=== PATIENT | female | born 1990 | race Caucasian/White ===

== ENCOUNTER 2016-07-13 19:34 | Emergency (ER) | payer OTHER ==
[2016-07-13 19:52] VITALS: RESP 16
[2016-07-13] MEDS ORDERED: NS 1,000 ML IV ONE (20:31)
[2016-07-13] MEDS ORDERED: ONDANSETRON 4 MG/2 ML VIAL IVP ONE (20:31)
--- NOTE | 2016-07-13 20:31 | EDPHY ---
H & P Time Seen by Provider: 07/13/16 20:30 HPI/ROS: Chief complaint. Vomiting for 1 month HPI. 26-year-old female presents with vomiting daily for 1 month. Seen at [facility] and diagnosed with gastritis. Treated with Prilosec and Pepto- Bismol which helps but does not resolve the symptoms completely. She has epigastric pain she describes as burning. No radiation. She does have a history of gastritis and peptic ulcer disease. Occasionally she has knee swelling and has had it twice this past month for no trauma. She feels sometimes that her hair is falling out. She does not have any swelling now. She is occasionally dizzy with climbing stairs and did pass out once a week or so ago. Otherwise no cough, fever, chest pain, shortness of breath, chills. ROS Constitutional. no fever/chills, no weakness Eyes. no problems with vision ENT. no sore throat, no nasal drainage Cardiovascular. no chest pain Respiratory. no shortness of breath, no cough Abdominal. Abdominal pain and vomiting . no problems urinating MS. no calf pain/swelling, no neck/back pain, no joint pain Skin. no rash Lymph. no swollen glands Neuro. no headache, no dizziness, no difficulty walking or with speech Past Medical/Surgical History: Peptic ulcer disease/gastritis Social History: Single, nonsmoker, no alcohol Smoking Status: Never smoked Physical Exam: General Appearance: Alert well-developed female mild distress vital signs are stable Eyes: Pupils equal and round no pallor or injection. ENT, Mouth: Mucous membranes are moist. Respiratory: There are no retractions, lungs are clear to auscultation. Cardiovascular: Regular rate and rhythm. Gastrointestinal: Abdomen is soft with mild tenderness in the epigastrium. Normal bowel sounds. No masses. Neurological: Awake and alert, sensory and motor exams grossly normal. Skin: Warm and dry, no rashes. Musculoskeletal: Neck is supple nontender. Extremities symmetrical, full range of motion. Psychiatric: Patient is oriented X 3, there is no agitation. Constitutional: Initial Vital Signs Temperature (C) 37.1 C 07/13/16 19:47 Heart Rate 67 07/13/16 19:47 Respiratory Rate 16 07/13/16 19:47 Blood Pressure 101/63 07/13/16 19:47 O2 Sat (%) 99 07/13/16 19:47 O2 Delivery Mode Room Air Allergies/Adverse Reactions: No Known Allergies Allergy (Unverified 07/13/16 19:52) Home Medications: Medication Instructions Recorded Esomeprazole Mag Trihydrate 40 mg PO DAILY #20 07/13/16 [Nexium] Ondansetron Odt [Zofran Odt] 4 mg PO Q4PRN PRN #10 tab 07/13/16 Pepto-Bismol 07/13/16 Prilosec Otc 07/13/16 Medical Decision Making Procedures: Patient given Nexium and Zofran in the emergency department ED Course/Re-evaluation: Patient remained stable on re-evaluation. She and I discussed laboratory evaluation, treatment plan including criteria for return importance of follow- up and further evaluation. She expresses understanding and agrees Differential Diagnosis: This would appear to be gastritis. Possibly it is peptic ulcer disease. There is no bleeding. I considered , pancreatitis, liver disease, electrolyte abnormality, dehydration - Data Points Laboratory Results: Laboratory Results 07/13/16 20:45 07/13/16 20:45 07/13/16 07/13/16 07/13/16 20:45 20:45 20:45 WBC RBC Hgb Hct MCV MCH MCHC RDW Plt Count MPV Neut % (Auto) Lymph % (Auto) [place] % (Auto) Eos % (Auto) Baso % (Auto) Nucleat RBC Rel Count Absolute Neuts (auto) Absolute Lymphs (auto) Absolute Monos (auto) Absolute Eos (auto) Absolute Basos (auto) Absolute Nucleated RBC Immature Gran % Immature Gran # Sodium 139 mEq/L mEq/L (134-144) Potassium 4.0 mEq/L mEq/L (3.5-5.2) Chloride 107 mEq/L mEq/L (97-110) Carbon Dioxide 22 mEq/l mEq/l (22-31) Anion Gap 10 mEq/L mEq/L (8-16) BUN 7 mg/dL mg/dL (7-23) Creatinine 0.6 mg/dL mg/dL (0.6-1.0) Estimated GFR > 60 Glucose 85 mg/dL mg/dL (70-100) Calcium 8.9 mg/dL mg/dL (8.5-10.4) Total Bilirubin 0.5 mg/dL mg/dL (0.1-1.4) Conjugated Bilirubin 0.4 mg/dL mg/dL (0.0-0.5) Unconjugated Bilirubin 0.1 mg/dL mg/dL (0.0-1.1) AST 20 IU/L IU/L (14-46) ALT 17 IU/L IU/L (9-52) Alkaline Phosphatase 51 IU/L IU/L (38-126) Total Protein 6.9 g/dL g/dL (6.3-8.2) Albumin 3.9 g/dL g/dL (3.5-5.0) Lipase 104.0 IU/L IU/L (23-300) Beta HCG, Qual NEGATIVE Urine Color PALE YELLOW Urine Appearance HAZY Urine pH 7.0 (5.0-7.5) Ur Specific [place] 1.008 (1.002-1.030) Urine Protein NEGATIVE (NEGATIVE) Urine Ketones TRACE H (NEGATIVE) Urine Blood NEGATIVE (NEGATIVE) Urine Nitrate NEGATIVE (NEGATIVE) Urine Bilirubin NEGATIVE (NEGATIVE) Urine Urobilinogen NEGATIVE EU EU (0.2-1.0) Ur Leukocyte Esterase 2+ H (NEGATIVE) Urine RBC NONE SEEN /hpf /hpf (0-3) Urine WBC 5-10 /hpf H /hpf (0-3) Ur Epithelial Cells TRACE /lpf /lpf (NONE-1+) Urine Bacteria TRACE /hpf H /hpf (NONE SEEN) Urine Glucose NEGATIVE (NEGATIVE) 07/13/16 20:45 WBC 6.82 10^3/uL 10^3/uL (3.80-9.50) RBC 4.21 10^6/uL 10^6/uL (4.18-5.33) Hgb 11.3 g/dL L g/dL (12.6-16.3) Hct 35.2 % L % (38.0-47.0) MCV 83.6 fL fL (81.5-99.8) MCH 26.8 pg L pg (27.9-34.1) MCHC 32.1 g/dL L g/dL (32.4-36.7) RDW 15.6 % H % (11.5-15.2) Plt Count 243 10^3/uL 10^3/uL (150-400) MPV 10.4 fL fL (8.7-11.7) Neut % (Auto) 43.2 % % (39.3-74.2) Lymph % (Auto) 43.0 % % (15.0-45.0) [place] % (Auto) 6.6 % % (4.5-13.0) Eos % (Auto) 6.5 % % (0.6-7.6) Baso % (Auto) 0.6 % % (0.3-1.7) Nucleat RBC Rel Count 0.0 % % (0.0-0.2) Absolute Neuts (auto) 2.95 10^3/uL 10^3/uL (1.70-6.50) Absolute Lymphs (auto) 2.93 10^3/uL 10^3/uL (1.00-3.00) Absolute Monos (auto) 0.45 10^3/uL 10^3/uL (0.30-0.80) Absolute Eos (auto) 0.44 10^3/uL H 10^3/uL (0.03-0.40) Absolute Basos (auto) 0.04 10^3/uL 10^3/uL (0.02-0.10) Absolute Nucleated RBC 0.00 10^3/uL 10^3/uL (0-0.01) Immature Gran % 0.1 % % (0.0-1.1) Immature Gran # 0.01 10^3/uL 10^3/uL (0.00-0.10) Sodium Potassium Chloride Carbon Dioxide Anion Gap BUN Creatinine Estimated GFR Glucose Calcium Total Bilirubin Conjugated Bilirubin Unconjugated Bilirubin AST ALT Alkaline Phosphatase Total Protein Albumin Lipase Beta HCG, Qual Urine Color Urine Appearance Urine pH Ur Specific [place] Urine Protein Urine Ketones Urine Blood Urine Nitrate Urine Bilirubin Urine Urobilinogen Ur Leukocyte Esterase Urine RBC Urine WBC Ur Epithelial Cells Urine Bacteria Urine Glucose Medications Given: Discontinued Medications Cephalexin HCl (Keflex) 500 mg PO EDNOW ONE PRN Reason: Protocol Stop: 07/13/16 22:04 Last Admin: 07/13/16 22:00 Dose: 500 mg Sodium Chloride (Ns) 1,000 mls @ 0 mls/hr IV ONCE ONE PRN Reason: Wide Open Stop: 07/13/16 20:32 Last Admin: 07/13/16 20:44 Dose: 1,000 mls Ondansetron HCl (Zofran) 4 mg IVP EDNOW ONE Stop: 07/13/16 20:32 Last Admin: 07/13/16 21:47 Dose: Not Given Ondansetron HCl (Zofran Odt 4 Mg Prepack#2) 1 btl TAKEHOME EDNOW ONE Stop: 07/13/16 21:40 Last Admin: 07/13/16 21:47 Dose: 1 btl Pantoprazole Sodium (Protonix) 40 mg PO EDNOW ONE Stop: 07/13/16 21:40 Last Admin: 07/13/16 21:53 Dose: 40 mg Departure - Departure Disposition: Home, Routine, Self-Care Clinical Impression: Gastritis Qualifiers: Gastritis type: unspecified gastritis Chronicity: chronic Gastritis bleeding: without bleeding Qualified Code(s): K29.50 - Unspecified chronic gastritis without bleeding Condition: Good Instructions: Ondansetron (By mouth), Gastritis (ED) Additional Instructions: Substitute Nexium for Prilosec for better healing of your stomach. Zofran as needed for nausea/ vomiting. Frequent, small sips fluids well nauseated. Gradual diet advancement. I will give you the name of senior software analyst and encourage you to call and make an appointment for follow-up and further evaluation. Return sooner for worsening symptoms Referrals: NONE *PRIMARY CARE P,. [Primary Care Provider] - As per Instructions Darshana Emmanuel MD [Medical Doctor] - As per Instructions Prescriptions: Esomeprazole Mag Trihydrate [Nexium] 40 mg PO DAILY #20 cap Ondansetron Odt [Zofran Odt] 4 mg PO Q4PRN PRN #10 tab PRN Reason: Nausea/Vomiting, Use 1st
[2016-07-13 20:50] LABS: % IMMATURE GRANULYOCYTES 0.1 % (0.0-1.1); ABSOLUTE IMMATURE GRANULOCYTES 0.01 10^3/uL (0.00-0.10); ADD DIFF? NO; ADD MORPH? NO; ADD SCAN? NO; ATYPICAL LYMPHOCYTE FLAG 30 (0-99); FRAGMENT RBC FLAG 0 (0-99); HEMATOCRIT 35.2 % (38.0-47.0); HEMOGLOBIN 11.3 g/dL (12.6-16.3); LEFT SHIFT FLG 0 (0-99); LIPEMIA HEMOLYSIS FLAG 80 (0-99); MEAN CELL HEMOGLOBIN 26.8 pg (27.9-34.1); MEAN CELL HEMOGLOBIN CONCENTR. 32.1 g/dL (32.4-36.7); MEAN CELL VOLUME 83.6 fL (81.5-99.8); MEAN PLATELET VOLUME 10.4 fL (8.7-11.7); PLATELET CLUMPS FLAG 0 (0-99); PLATELET COUNT 243 10^3/uL (150-400); RED BLOOD CELL COUNT 4.21 10^6/uL (4.18-5.33); RED CELL DISTRIBUTION WIDTH 15.6 % (11.5-15.2)
[2016-07-13 20:56] LABS: COLOR PALE YELLOW; LEUKOCYTE ESTERASE,URINE 2+ (NEGATIVE); NITRITE,URINE NEGATIVE (NEGATIVE)
[2016-07-13 21:05] LABS: ALANINE AMINOTRANSFERASE 17 IU/L (9-52); ALBUMIN 3.9 g/dL (3.5-5.0); ALKALINE PHOSPHATASE 51 IU/L (38-126); ANION GAP 10 mEq/L (8-16); ASPARTATE AMINOTRANSFERASE 20 IU/L (14-46); BILIRUBIN,TOTAL 0.5 mg/dL (0.1-1.4); BILIRUBIN-CONJUGATED 0.4 mg/dL (0.0-0.5); BILIRUBIN-UNCONJUGATED 0.1 mg/dL (0.0-1.1); CALCIUM 8.9 mg/dL (8.5-10.4); CARBON DIOXIDE 22 mEq/l (22-31); CHLORIDE 107 mEq/L (97-110); CREATININE 0.6 mg/dL (0.6-1.0); GLOMERULAR FILTRATION RATE > 60; GLUCOSE 85 mg/dL (70-100); SODIUM 139 mEq/L (134-144); TOTAL PROTEIN 6.9 g/dL (6.3-8.2)
[2016-07-13 21:09] LABS: BACTERIA TRACE /hpf (NONE SEEN)
[2016-07-13 21:10] LABS: RBC,URINE NONE SEEN /hpf (0-3)
[2016-07-13] MEDS ORDERED: ONDANSETRON 4MG PREPACK#2 BTL TAKEHOME ONE (21:39)
[2016-07-13] MEDS ORDERED: PANTOPRAZOLE SODIUM 40 MG TAB PO ONE (21:39)
[2016-07-13 21:54] VITALS: BP 132/64; PULSE 72; TEMP 98.1; O2SAT 97
[2016-07-13] MEDS ORDERED: CEPHALEXIN 500 MG CAP PO ONE ×2 (21:59→22:03)
== END 2016-07-13 22:10 | disposition home or self-care (01) ==
DX: K29.50 Unspecified chronic gastritis without bleeding (principal)

== ENCOUNTER 2016-10-08 13:54 | Emergency (ER) | payer OTHER ==
[2016-10-08 14:00] VITALS: TEMP 97.9
[2016-10-08] MEDS ORDERED: HYDROmorphONE/DILAUDID 1 MG/ML SYR IVP ONE (14:55)
[2016-10-08] MEDS ORDERED: ONDANSETRON 4 MG/2 ML VIAL IVP ONE (14:55)
[2016-10-08] MEDS ORDERED: NS 1,000 ML IV ONE (14:55)
[2016-10-08] MEDS ORDERED: MAG HYDROX/AL HYDROX/SIMETH 30 ML UDCUP PO ONE (14:58)
[2016-10-08] MEDS ORDERED: HYOSCYAMINE SULFATE 0.125 MG TAB PO ONE (14:58)
[2016-10-08] MEDS ORDERED: LIDOCAINE 2% VISCOUS 15 ML UDCUP PO ONE (14:58)
--- NOTE | 2016-10-08 15:02 | EDPHY ---
H & P Stated Complaint: Abdo pain, N/V/D for 2 days, getting worse. Time Seen by Provider: 10/08/16 14:47 HPI/ROS: CHIEF COMPLAINT: Abdominal pain vomiting HISTORY OF PRESENT ILLNESS: This is a 26-year-old female comes to the emergency department complaining of abdominal epigastric pain, nausea and vomiting today. No diarrhea she states that she has had this off and on for the last several months. She was seen here and diagnosed with gastritis. She has been to her primary at [facility] she has peptic ulcer disease. she also has been treating herself for celiac disease with moderate improvement. She states however that she has been compliant with her diet recently but over the last 2 days her symptoms have worsened again. She has been referred to manager civil but could not get her insurance to cooperate. She is currently menstruating. She denies back or urinary symptoms. She states that she cannot keep down food or fluids today. REVIEW OF SYSTEMS: Constitutional: denies: chills, fever, recent illness, recent injury EENTM: denies: blurred vision, double vision, nose congestion Respiratory: denies: cough, shortness of breath Cardiac: denies: chest pain, irregular heart rate, lightheadedness, palpitations Gastrointestinal/Abdominal: See HPI Genitourinary: denies: dysuria, frequency, hematuria, pain Musculoskeletal: denies: joint pain, muscle pain Skin: denies: lesions, rash, jaundice, bruising Neurological: denies: headache, numbness, paresthesia, tingling, dizziness, weakness Hematologic/Lymphatic: denies: blood clots, easy bleeding, easy bruising Immunologic/allergic: denies: HIV/AIDS, transplant EXAM: GENERAL: Well-appearing, obese and in no acute distress. HEAD: Atraumatic, normocephalic. EYES: Pupils equal round and reactive to light, extraocular movements intact, sclera anicteric, conjunctiva are normal. ENT: TMs normal, nares patent, oropharynx clear without exudates. Moist mucous membranes. NECK: Normal range of motion, supple without lymphadenopathy or JVD. LUNGS: Breath sounds clear to auscultation bilaterally and equal. No wheezes rales or rhonchi. HEART: Regular rate and rhythm without murmurs, rubs or gallops. ABDOMEN: Overweight, diffuse pain, primarily epigastric. No focal tenderness. BACK: No CVA tenderness, no spinal tenderness, step-offs or deformities EXTREMITIES: Normal range of motion, no pitting or edema. No clubbing or cyanosis. NEUROLOGICAL: Cranial nerves II through XII grossly intact. Normal speech, normal gait. 5/5 strength, normal movement in all extremities, normal sensation PSYCH: Normal mood, normal affect. SKIN: Warm, dry, normal turgor, no visible rashes or lesions. Source: Patient Exam Limitations: No limitations - Personal History LMP (Females 10-55): Now Current Tetanus Diphtheria and Acellular Pertussis (TDAP): Yes - Medical/Surgical History Hx Asthma: No Hx Chronic Respiratory Disease: No Hx Diabetes: No Hx Cardiac Disease: No Hx Renal Disease: No Hx Cirrhosis: No Hx Alcoholism: No Hx HIV/AIDS: No Hx Splenectomy or Spleen Trauma: No Other PMH: ongoing gi issues, tonsillectomy - Family History Significant Family History: No pertinent family hx - Social History Smoking Status: Never smoked Alcohol Use: Sober Drug Use: None Constitutional: Initial Vital Signs Temperature (C) 36.6 C 10/08/16 13:55 Heart Rate 72 10/08/16 13:55 Respiratory Rate 16 10/08/16 13:55 Blood Pressure 108/81 H 10/08/16 13:55 O2 Sat (%) 100 10/08/16 13:55 O2 Delivery Mode Room Air Allergies/Adverse Reactions: No Known Allergies Allergy (Unverified 07/13/16 19:52) Home Medications: Medication Instructions Recorded Esomeprazole Mag Trihydrate 40 mg PO DAILY #20 ramiro. 07/13/16 [Nexium] Pepto-Bismol 07/13/16 Prilosec Otc 07/13/16 Famotidine [Pepcid] 40 mg PO HS #30 tablet 10/08/16 Prozac 10 MG (*) 10/08/16 Medical Decision Making ED Course/Re-evaluation: 4:40 p.m. the patient is feeling completely better. Her abdominal exam remains benign. She states that the GI cocktail helped immensely. She is not currently taking an antacid. I will start her on Pepcid. She will follow up with her insurance recommended GI doctor. We discussed indications for returning to the emergency department. She states that she has not felt this well in her life. Differential Diagnosis: Partial list of the Differential diagnosis considered include but were not limited to; gastritis, peptic ulcer disease and although unlikely based on the history and physical exam, I also considered biliary disease, appendicitis, obstruction. I discussed these differential diagnoses and the plan with the patient as well as the usual and expected course. The patient understands that the diagnosis is provisional and that in medicine we are not always correct and that further workup is often warranted. Usual and customary warnings were given. All of the patient's questions were answered. The patient was instructed to return to the emergency department should the symptoms at all worsen or return, otherwise to followup with the physician as we discussed. - Data Points Laboratory Results: Laboratory Results 10/08/16 15:14 10/08/16 15:14 Medications Given: Discontinued Medications Al Hydroxide/Mg Hydroxide (Maalox Susp) 30 ml PO ONCE ONE Stop: 10/08/16 14:59 Last Admin: 10/08/16 15:22 Dose: 30 ml Hydromorphone HCl (Dilaudid) 0.5 mg IVP EDNOW ONE Stop: 10/08/16 14:56 Last Admin: 10/08/16 15:16 Dose: 0.5 mg Hyoscyamine Sulfate (Levsin, Hyomax-Sl) 0.25 mg PO ONCE ONE Stop: 10/08/16 14:59 Last Admin: 10/08/16 15:15 Dose: 0.25 mg Sodium Chloride (Ns) 1,000 mls @ 0 mls/hr IV EDNOW ONE; Wide Open PRN Reason: Protocol Stop: 10/08/16 14:56 Last Admin: 10/08/16 15:18 Dose: 1,000 mls Lidocaine (Lidocaine 2% Viscous) 15 ml PO ONCE ONE Stop: 10/08/16 14:59 Last Admin: 10/08/16 15:22 Dose: 15 ml Ondansetron HCl (Zofran) 4 mg IVP EDNOW ONE Stop: 10/08/16 14:56 Last Admin: 10/08/16 15:18 Dose: 4 mg Departure - Departure Disposition: Home, Routine, Self-Care Clinical Impression: Peptic ulcer disease Condition: Fair Instructions: Peptic Ulcer (ED) Referrals: NONE *PRIMARY CARE P,. [Primary Care Provider] - As per Instructions [facility],. [Clinic] - As per Instructions Darshana Emmanuel MD [Medical Doctor] - As per Instructions Prescriptions: Famotidine [Pepcid] 40 mg PO HS #30 tablet
[2016-10-08 15:29] LABS: % IMMATURE GRANULYOCYTES 0.4 % (0.0-1.1); ABSOLUTE IMMATURE GRANULOCYTES 0.04 10^3/uL (0.00-0.10); ADD DIFF? NO; ADD MORPH? NO; ADD SCAN? NO; ATYPICAL LYMPHOCYTE FLAG 0 (0-99); FRAGMENT RBC FLAG 0 (0-99); HEMATOCRIT 40.5 % (38.0-47.0); HEMOGLOBIN 13.1 g/dL (12.6-16.3); LEFT SHIFT FLG 0 (0-99); LIPEMIA HEMOLYSIS FLAG 80 (0-99); MEAN CELL HEMOGLOBIN CONCENTR. 32.3 g/dL (32.4-36.7); MEAN CELL VOLUME 83.5 fL (81.5-99.8); MEAN PLATELET VOLUME 9.4 fL (8.7-11.7); PLATELET CLUMPS FLAG 0 (0-99); PLATELET COUNT 407 10^3/uL (150-400); RED BLOOD CELL COUNT 4.85 10^6/uL (4.18-5.33); RED CELL DISTRIBUTION WIDTH 17.2 % (11.5-15.2)
[2016-10-08 15:37] LABS: ALANINE AMINOTRANSFERASE 24 IU/L (9-52); ALBUMIN 4.6 g/dL (3.5-5.0); ALKALINE PHOSPHATASE 81 IU/L (38-126); ANION GAP 12 mEq/L (8-16); ASPARTATE AMINOTRANSFERASE 22 IU/L (14-46); BILIRUBIN,TOTAL 0.4 mg/dL (0.1-1.4); BILIRUBIN-CONJUGATED 0.2 mg/dL (0.0-0.5); BILIRUBIN-UNCONJUGATED 0.2 mg/dL (0.0-1.1); CALCIUM 10.2 mg/dL (8.5-10.4); CARBON DIOXIDE 23 mEq/l (22-31); CHLORIDE 104 mEq/L (97-110); CREATININE 0.7 mg/dL (0.6-1.0); GLOMERULAR FILTRATION RATE > 60; GLUCOSE 101 mg/dL (70-100); POTASSIUM 4.1 mEq/L (3.5-5.2); SODIUM 139 mEq/L (134-144); TOTAL PROTEIN 8.4 g/dL (6.3-8.2)
[2016-10-08 17:02] VITALS: BP 97/71; PULSE 62; RESP 18; O2SAT 92
== END 2016-10-08 17:02 | disposition home or self-care (01) ==
DX: K27.9 Peptic ulcer, site unspecified, unspecified as acute or chronic, without hemorrhage or perforation (principal); E86.9 Volume depletion, unspecified
CPT/HCPCS: 96374; J1170; J2405

== ENCOUNTER 2016-12-29 21:25 | Emergency (ER) | payer OTHER ==
--- NOTE | 2016-12-29 22:02 | EDPHY ---
H & P Stated Complaint: Abd Pain Time Seen by Provider: 12/29/16 22:02 - Personal History LMP (Females 10-55): 8-14 Days Ago Current Tetanus Diphtheria and Acellular Pertussis (TDAP): Yes - Medical/Surgical History Hx Asthma: No Hx Chronic Respiratory Disease: No Hx Diabetes: No Hx Cardiac Disease: No Hx Renal Disease: No Hx Cirrhosis: No Hx Alcoholism: No Hx HIV/AIDS: No Hx Splenectomy or Spleen Trauma: No Other PMH: ongoing gi issues, peptic ulcer, tonsillectomy, depression - Social History Smoking Status: Never smoked Constitutional: Initial Vital Signs Temperature (C) 36.7 C 12/29/16 21:27 Heart Rate 90 12/29/16 21:27 Respiratory Rate 18 12/29/16 21:27 Blood Pressure 104/59 L 12/29/16 21:27 O2 Sat (%) 92 12/29/16 21:27 O2 Delivery Mode Room Air Allergies/Adverse Reactions: No Known Allergies Allergy (Unverified 07/13/16 19:52) Home Medications: Medication Instructions Recorded Esomeprazole Mag Trihydrate 40 mg PO DAILY #20 cap. 07/13/16 [Nexium] Pepto-Bismol 07/13/16 Prilosec Otc 07/13/16 Famotidine [Pepcid] 40 mg PO HS #30 tablet 10/08/16 Prozac 10 MG (*) 10/08/16 Pantoprazole Sodium [Protonix] 40 mg PO DAILY #30 tablet. 12/29/16 Sucralfate [Carafate Oral Liquid 100 mg PO QID #240 ml 12/29/16 100 mg/ml] Medical Decision Making ED Course/Re-evaluation: CHIEF COMPLAINT: "I seem to have an ulcer and I'm having difficulty with my insurance" HISTORY OF PRESENT ILLNESS: The patient is a 26 y/o female arriving with her her boyfriend complaining of ongoing epigastric pain related to possible gastric ulcer. She was evaluated here in September for similar symptoms and was treated in the ED with a GI cocktail, which resolved her symptoms temporarily. Two abdominal ultrasounds were negative. She was prescribed Pepcid and has been taking that daily for symptoms with only minor alleviation. Pain is worse with alcohol, so she has avoided it completely. She has some associated nausea and occasional vomiting. 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 REVIEW OF SYSTEMS: A 10 point review of systems was performed and is negative with the exception of the elements mentioned in the history of present illness. PHYSICAL EXAM: HR, BP, O2 Sat, RR. Temp noted General Appearance: Alert, well hydrated, appropriate, and non-toxic appearing. Head: Atraumatic without scalp tenderness or obvious injury Eyes: Pupils equal, round, reactive to light and accommodation, EOMI, no trauma , no injection. Nose: Atraumatic, no rhinorrhea, clear. Throat: Mucus membranes moist. Neck: Supple, nontender, no lymphadenopathy. Respiratory: No retractions, no distress, no wheezes, and no accessory muscle use. Lungs are clear to auscultation bilaterally. Cardiovascular: Regular rate and rhythm, no murmurs, rubs, or gallops. Good capillary refill all extremities. Gastrointestinal: Abdomen is soft, nontender, non-distended, no masses, no rebound, no guarding, no peritoneal signs. Musculoskeletal: Normal active ROM of all extremities, atraumatic. Neurological: Alert, appropriate, and interactive. The patient has non-focal cranial nerves, motor, sensory, and cerebellar exam. Skin: No rashes, good turgor, no nodules on palpation. Past medical history: Peptic ulcer Past surgical history: noncontributory Family history: noncontributory Social history: From [place]. Boyfriend at bedside. Prior medical records reviewed including ED visit 10/08/16 for similar symptoms. DIFFERENTIAL DIAGNOSIS: The differential diagnosis for the patient's abdominal pain included but was not limited to ovarian cyst, pelvic inflammatory disease, ovarian torsion, urinary tract infection, ectopic , cholecystitis, and appendicitis. MEDICAL DECISION MAKING: This is an otherwise healthy 26 y/o female with recent diagnosis of probable peptic ulcer disease who has been unable to follow up with GI due to insurance issues and is continuing to have symptoms on daily Pepcid. I believe her symptoms are undertreated and have added Protonix and Carafate to her daily regimen until she is able to see GI. I've put in an order to case management asking them to follow up with her tomorrow to help arrange appropriate follow up. She has a benign abdomen today and there is no indication for further work up. Discussed follow up and return precautions. She is comfortable with this plan. Departure - Departure Disposition: Home, Routine, Self-Care Clinical Impression: Peptic ulcer disease Condition: Good Instructions: Sucralfate (By mouth), Pantoprazole (By mouth), Peptic Ulcer (ED) Additional Instructions: 1. Take Protonix as prescribed for peptic ulcer disease. 2. Use Carafate as prescribed for peptic ulcer disease. 3. Follow up with GI in the next week. We've asked our case management team to contact you tomorrow to help with follow up. You can also call the ED main number and ask to be connected to case management during normal business hours. 4. Return to the ED for worsening of condition. Referrals: Yoseph Parker MD [Medical Doctor] - As per Instructions Prescriptions: Pantoprazole Sodium [Protonix] 40 mg PO DAILY #30 tablet.dr Wongralfate [Carafate Oral Liquid 100 mg/ml] 100 mg PO QID #240 ml Report Scribed for: Art Singh Report Scribed by: Daniella Vasquez Date of Report: 12/29/16 Time of Report: 22:13
[2016-12-29] MEDS ORDERED: PANTOPRAZOLE SODIUM 40 MG TAB PO ONE (22:13)
[2016-12-29 22:56] VITALS: BP 111/65; PULSE 92; RESP 16; TEMP 97.7; O2SAT 96
[2016-12-30] MEDS ORDERED: SUCRALFATE 1 GM/10 ML UDCUP PO ONE (22:15)
== END 2016-12-29 22:55 | disposition home or self-care (01) ==
DX: K27.9 Peptic ulcer, site unspecified, unspecified as acute or chronic, without hemorrhage or perforation (principal)

== ENCOUNTER 2017-01-21 16:08 | Emergency (ER) | payer OTHER ==
[2017-01-21 16:21] VITALS: BP 117/74; PULSE 78; RESP 16; TEMP 98.2; O2SAT 98
--- NOTE | 2017-01-21 17:56 | EDPHY ---
H & P Stated Complaint: abd pain Time Seen by Provider: 01/21/17 17:50 HPI/ROS: HPI: This is a 26-year-old female who presents Chief Complaint: abd pain Location: Epigastric Quality: Burning pain Duration: Weeks Signs and Symptoms: no fever, no nausea, no vomiting, no hematemesis, no blood in stool, no abdominal bloating, no diarrhea, no back pain, no urinary symptoms , no vaginal bleeding/discharge, + indigestion, no chest pain, no shortness of breath Timing: Acute on chronic Severity: Moderate Context: Patient has been seen in this emergency room for the same complaint; July, September, December and now today. She describes a burning dull sensation in the epigastric area. She reports that when she was seen in December she was started on Protonix and Carafate. Symptoms resolved while taking the medication but returned approximately 2 days later. She has had 2 normal abdominal ultrasound. She is able to eat and drink without difficulty. Her epigastric discomfort is irritated by alcohol for which she has stops over the last several weeks. She has been eating a bland Vegan diet. LMP 1-7 days ago. After further questioning appears that patient is extremely frustrated she has not been able to get in with Gastroenterology for follow-up. She believes that she would benefit from an EGD outpatient. After last ER visit she was told she would have a outpatient case manager consult her but this never happened. Modifying Factors: See above Comment: ROS: see HPI Constitutional: No fever, no chills, no weight loss Eyes: No blurred vision Respiratory: No shortness of breath, no cough Cardiovascular: No chest pain, no palpitations Gastrointestinal: No nausea, no vomiting, no diarrhea, no hematemesis, no blood in stool Genitourinary: No dysuria, no blood in urine Extremities: No myalgias, no edema Neurologic: No weakness, no numbness Skin: No rashes, no petechiae Hematologic: No bruising, no bleeding MEDICAL/SURGICAL/SOCIAL HISTORY: Medical history: ongoing gi issues, peptic ulcer, tonsillectomy, depression Surgical history: Denies Social history: Currently in a relationship. CONSTITUTIONAL: Extremely well-appearing young adult white female, awake and alert, no obvious distress HEENT: Atraumatic and normocephalic, PERRL, EOMI. Tympanic membranes clear. Oropharynx clear, no exudate and moist pink mucosa. Airway patent. No lymphadenopathy. No meningismus. Cardiovascular: Normal S1/S2, regular rate, regular rhythm, without murmur rub or gallop. PULMONARY/CHEST: Symmetrical and nontender. Clear to auscultation bilaterally. Good air movement. No accessory muscle usage. ABDOMEN: Soft, nondistended, moderate epigastric tenderness, no rebound, no guarding, no peritoneal signs, no masses or organomegaly. No CVAT. RECTAL: Good sphincter tone, light brown stool in vault, no external hemorrhoids , no fissures, no palpable masses, guaiac negative EXTREMITIES: 2/2 pulses, strength 5/5, no deformities, no clubbing, no cyanosis or edema. NEUROLOGICAL: no focal neuro deficits. GCS 15. SKIN: Warm and dry, no erythema. no rash. Good capillary refill. Source: Patient Exam Limitations: No limitations - Personal History LMP (Females 10-55): 1-7 Days Ago Current Tetanus/Diphtheria Vaccine: Yes Current Tetanus Diphtheria and Acellular Pertussis (TDAP): Yes - Medical/Surgical History Hx Asthma: No Hx Chronic Respiratory Disease: No Hx Diabetes: No Hx Cardiac Disease: No Hx Renal Disease: No Hx Cirrhosis: No Hx Alcoholism: No Hx HIV/AIDS: No Hx Splenectomy or Spleen Trauma: No Other PMH: ongoing gi issues, peptic ulcer, tonsillectomy, depression - Social History Smoking Status: Never smoked Constitutional: Initial Vital Signs Temperature (C) 36.8 C 01/21/17 16:18 Heart Rate 78 01/21/17 16:18 Respiratory Rate 16 01/21/17 16:18 Blood Pressure 117/74 01/21/17 16:18 O2 Sat (%) 98 01/21/17 16:18 O2 Delivery Mode Room Air Allergies/Adverse Reactions: No Known Allergies Allergy (Unverified 01/21/17 16:16) Home Medications: Medication Instructions Recorded Pepto-Bismol 07/13/16 Prozac 10 MG (*) 10/08/16 Pantoprazole Sodium [Protonix 40mg 40 mg PO BID #14 tab 01/21/17 (*)] Sucralfate [Carafate 1gm/10ml Oral 1 gm PO QID 7 Days ml 01/21/17 Liquid (*)] Medical Decision Making ED Course/Re-evaluation: Guaiac ordered Patient given GI cocktail with complete resolution of symptoms. Discussed repeating labs and further imaging but patient politely declined. She is completely stable. She really just wants a refill of her Protonix and Carafate which I deem is reasonable. Gastroenterology follow-up as would benefit from EGD outpatient No suggestion of free air or perforation to support obtaining a abdominal x-ray or CT abdomen and pelvis scan. This patient was seen under the supervision of my secondary supervising physician. I evaluated care for this patient independently. Discussed this patient with Dr. Prakash who did not see the patient. Patient's presentation, labs /imaging, treatment and plan of care were discussed with secondary supervising physician. Differential Diagnosis: Abdominal pain including but not limited to appendicitis, cholecystitis, gastritis and urinary tract infection. Departure - Departure Disposition: Home, Routine, Self-Care Clinical Impression: Peptic ulcer disease GERD (gastroesophageal reflux disease) Qualifiers: Esophagitis presence: esophagitis presence not specified Qualified Code(s): K21.9 - Gastro-esophageal reflux disease without esophagitis Condition: Good Instructions: Peptic Ulcer (ED), Gastritis (ED) Additional Instructions: Please take Protonix 40 mg twice daily and then switched to Nexium 40 mg twice daily until seen for follow-up with Gastroenterology. Take care feet 4 times a day x7 days. Avoid any foods like citrus, spicy, fried that may irritate your stomach. Eat a bland diet. Avoid alcohol. Call Gastroenterology for follow-up. Referrals: Eriberto Decker MD [Medical Doctor] - As per Instructions [facility],. [Clinic] - As per Instructions Prescriptions: Pantoprazole Sodium [Protonix 40mg (*)] 40 mg PO BID #14 tab Sucralfate [Carafate 1gm/10ml Oral Liquid (*)] 1 gm PO QID 7 Days ml
[2017-01-21] MEDS ORDERED: NS 1,000 ML IV ONE (17:58)
[2017-01-21] MEDS ORDERED: LIDOCAINE 2% VISCOUS 15 ML UDCUP PO ONE (17:58)
[2017-01-21] MEDS ORDERED: FAMOTIDINE 20 MG/NACL 50 ML IV ONE (17:58)
[2017-01-21] MEDS ORDERED: HYOSCYAMINE SULFATE 0.125 MG TAB PO ONE (17:58)
[2017-01-21] MEDS ORDERED: MAG HYDROX/AL HYDROX/SIMETH 30 ML UDCUP PO ONE (17:58)
== END 2017-01-21 19:05 | disposition home or self-care (01) ==
DX: K25.9 Gastric ulcer, unspecified as acute or chronic, without hemorrhage or perforation (principal); K21.9 Gastro-esophageal reflux disease without esophagitis

== ENCOUNTER 2017-01-23 22:31 | Emergency (ER) | payer OTHER ==
[2017-01-23] MEDS ORDERED: NS 500 ML IV ONE (23:18)
[2017-01-23] MEDS ORDERED: FAMOTIDINE 20 MG/NACL 50 ML IV ONE (23:18)
[2017-01-23 23:23] LABS: % IMMATURE GRANULYOCYTES 0.1 % (0.0-1.1); ABSOLUTE IMMATURE GRANULOCYTES 0.01 10^3/uL (0.00-0.10); ADD DIFF? NO; ADD MORPH? NO; ADD SCAN? NO; ATYPICAL LYMPHOCYTE FLAG 0 (0-99); FRAGMENT RBC FLAG 0 (0-99); HEMATOCRIT 37.5 % (38.0-47.0); HEMOGLOBIN 12.1 g/dL (12.6-16.3); LEFT SHIFT FLG 0 (0-99); LIPEMIA HEMOLYSIS FLAG 80 (0-99); MEAN CELL HEMOGLOBIN 26.4 pg (27.9-34.1); MEAN CELL HEMOGLOBIN CONCENTR. 32.3 g/dL (32.4-36.7); MEAN CELL VOLUME 81.9 fL (81.5-99.8); MEAN PLATELET VOLUME 8.9 fL (8.7-11.7); PLATELET CLUMPS FLAG 0 (0-99); PLATELET COUNT 299 10^3/uL (150-400); RED BLOOD CELL COUNT 4.58 10^6/uL (4.18-5.33); RED CELL DISTRIBUTION WIDTH 17.1 % (11.5-15.2)
--- NOTE | 2017-01-23 23:27 | EDPHY ---
H & P Stated Complaint: vomiting with blood seen 2 days ago for same Time Seen by Provider: 01/23/17 22:41 HPI/ROS: HPI The patient presents with epigastric abdominal pains, nausea with vomiting, difficulty eating because of these symptoms. She has been seen multiple times in this emergency department, last was just a few days ago and she was given Protonix and Carafate. She says these medications have helped treat the pain. She has a working diagnosis of peptic ulcer disease. She is most concerned because she is not able to eat anything. She says she can't take liquids without difficulty. However with food, about 10 min after eating, she describes a sensation of a ball in her abdomen and a tense sensation in her epigastrium. She then begins to hyperventilate and often vomits or becomes very nauseated. She does describe some bloody streaks in her vomit and occasional coffee grounds. This is been happening for many months now. She says she thinks she has lost weight because of this and has dropped for pant sizes. She has made arrangements to follow up with GI of the [facility] in 2 days. REVIEW OF SYSTEMS Constitutional: No fever, no chills. Eyes: No discharge. ENT: No sore throat. Cardiovascular: No chest pain, no palpitations. Respiratory: No cough, no shortness of breath. Gastrointestinal: See HPI Genitourinary: No hematuria. Musculoskeletal: No back pain. Skin: No rashes. Neurological: No headache. PMHx: Presumed peptic ulcer disease on PPI currently PHYSICAL General Appearance: Alert, no distress Eyes: Pupils equal and round no pallor or injection ENT, Mouth: Mucous membranes moist Respiratory: There are no retractions, lungs are clear to auscultation Cardiovascular: Regular rate and rhythm Gastrointestinal: Abdomen is soft and non-tender, no masses, bowel sounds normal Rectal: No stool in the vault, no masses palpated Neurological: A&O, moves all extremities Skin: Warm and dry, no rashes Musculoskeletal: Neck is supple non tender Extremities: symmetrical, full range of motion Psychiatric: Patient is oriented X 3, there is no agitation Source: Patient Exam Limitations: No limitations - Personal History LMP (Females 10-55): 15-21 Days Ago Current Tetanus/Diphtheria Vaccine: Yes Current Tetanus Diphtheria and Acellular Pertussis (TDAP): Yes - Medical/Surgical History Hx Asthma: No Hx Chronic Respiratory Disease: No Hx Diabetes: No Hx Cardiac Disease: No Hx Renal Disease: No Hx Cirrhosis: No Hx Alcoholism: No Hx HIV/AIDS: No Hx Splenectomy or Spleen Trauma: No Other PMH: ongoing gi issues, peptic ulcer, tonsillectomy, depression - Social History Smoking Status: Never smoked Constitutional: Initial Vital Signs Temperature (C) 36.5 C 01/23/17 22:34 Heart Rate 79 01/23/17 22:34 Respiratory Rate 18 01/23/17 22:34 Blood Pressure 120/95 H 01/23/17 22:34 O2 Sat (%) 98 01/23/17 22:34 O2 Delivery Mode Room Air Allergies/Adverse Reactions: No Known Allergies Allergy (Unverified 01/21/17 16:16) Home Medications: Medication Instructions Recorded Prozac 10 MG (*) 10/08/16 Pantoprazole Sodium [Protonix 40mg 40 mg PO BID #14 tab 01/21/17 (*)] Sucralfate [Carafate 1gm/10ml Oral 1 gm PO QID 7 Days ml 01/21/17 Liquid (*)] Nexium 01/23/17 Medical Decision Making Differential Diagnosis: This is a 26-year-old female with working diagnosis of peptic ulcer disease, though no EGD performed ever, who presents with epigastric abdominal pain and vomiting after meals making it difficult for her to eat. She is currently on a PPI and Carafate with some improvement in her symptoms but is mostly concerned that she is unable to eat. Differential diagnosis includes gastritis, duodenal ulcer, esophageal spasm. In the emergency department, patient was given IV fluids and IV famotidine with complete resolution in her symptoms. She was able to tolerate juice and crackers without difficulty. Labs were checked and showed hemoglobin stable with previous levels checked earlier in the year. Electrolytes were normal. She felt much better and would like to go home. I doubt any serious GI bleeding and feels she may have had mild gastritis versus Zo[place] tear. I do not think she needs admission for GI bleed. She has GI follow-up in 2 days and I feel this is sufficient. - Data Points Laboratory Results: Laboratory Results 01/23/17 23:09 01/23/17 23:09 01/23/17 01/23/17 23:09 23:09 WBC 7.02 10^3/uL 10^3/uL (3.80-9.50) RBC 4.58 10^6/uL 10^6/uL (4.18-5.33) Hgb 12.1 g/dL L g/dL (12.6-16.3) Hct 37.5 % L % (38.0-47.0) MCV 81.9 fL fL (81.5-99.8) MCH 26.4 pg L pg (27.9-34.1) MCHC 32.3 g/dL L g/dL (32.4-36.7) RDW 17.1 % H % (11.5-15.2) Plt Count 299 10^3/uL 10^3/uL (150-400) MPV 8.9 fL fL (8.7-11.7) Neut % (Auto) 53.1 % % (39.3-74.2) Lymph % (Auto) 34.2 % % (15.0-45.0) [place] % (Auto) 6.0 % % (4.5-13.0) Eos % (Auto) 6.3 % % (0.6-7.6) Baso % (Auto) 0.3 % % (0.3-1.7) Nucleat RBC Rel Count 0.0 % % (0.0-0.2) Absolute Neuts (auto) 3.73 10^3/uL 10^3/uL (1.70-6.50) Absolute Lymphs (auto) 2.40 10^3/uL 10^3/uL (1.00-3.00) Absolute Monos (auto) 0.42 10^3/uL 10^3/uL (0.30-0.80) Absolute Eos (auto) 0.44 10^3/uL H 10^3/uL (0.03-0.40) Absolute Basos (auto) 0.02 10^3/uL 10^3/uL (0.02-0.10) Absolute Nucleated RBC 0.00 10^3/uL 10^3/uL (0-0.01) Immature Gran % 0.1 % % (0.0-1.1) Immature Gran # 0.01 10^3/uL 10^3/uL (0.00-0.10) Sodium 139 mEq/L mEq/L (134-144) Potassium 3.8 mEq/L mEq/L (3.5-5.2) Chloride 103 mEq/L mEq/L (97-110) Carbon Dioxide 21 mEq/l L mEq/l (22-31) Anion Gap 15 mEq/L mEq/L (8-16) BUN 13 mg/dL mg/dL (7-23) Creatinine 0.7 mg/dL mg/dL (0.6-1.0) Estimated GFR > 60 Glucose 80 mg/dL mg/dL (70-100) Calcium 9.5 mg/dL mg/dL (8.5-10.4) Total Bilirubin 0.4 mg/dL mg/dL (0.1-1.4) AST 19 IU/L IU/L (14-46) ALT 27 IU/L IU/L (9-52) Alkaline Phosphatase 60 IU/L IU/L (38-126) Total Protein 7.2 g/dL g/dL (6.3-8.2) Albumin 4.4 g/dL g/dL (3.5-5.0) Lipase 79 IU/L IU/L (23-300) Medications Given: Discontinued Medications Sodium Chloride (Ns) 500 mls @ 1,000 mls/hr IV EDNOW ONE PRN Reason: Protocol Stop: 01/23/17 23:47 Last Admin: 01/23/17 23:24 Dose: 500 mls Famotidine/Sodium Chloride (Pepcid 20 Mg (Premix)) 50 mls @ 200 mls/hr IV EDNOW ONE Stop: 01/23/17 23:32 Last Admin: 01/23/17 23:25 Dose: 50 mls Departure - Departure Disposition: Home, Routine, Self-Care Clinical Impression: Gastritis Condition: Good Instructions: Gastritis (ED), Diet for Stomach Ulcers and Gastritis (ED) Additional Instructions: Please continue to take your medications as prescribed. You should follow up with your gastroenterology appointment in 2 days. Referrals: Gastroenterology [facility] [Provider Group] - As per Instructions
[2017-01-23 23:31] LABS: ALANINE AMINOTRANSFERASE 27 IU/L (9-52); ALBUMIN 4.4 g/dL (3.5-5.0); ALKALINE PHOSPHATASE 60 IU/L (38-126); ANION GAP 15 mEq/L (8-16); ASPARTATE AMINOTRANSFERASE 19 IU/L (14-46); BILIRUBIN,TOTAL 0.4 mg/dL (0.1-1.4); CALCIUM 9.5 mg/dL (8.5-10.4); CARBON DIOXIDE 21 mEq/l (22-31); CHLORIDE 103 mEq/L (97-110); CREATININE 0.7 mg/dL (0.6-1.0); GLOMERULAR FILTRATION RATE > 60; GLUCOSE 80 mg/dL (70-100); POTASSIUM 3.8 mEq/L (3.5-5.2); SODIUM 139 mEq/L (134-144); TOTAL PROTEIN 7.2 g/dL (6.3-8.2)
[2017-01-24 01:05] VITALS: BP 100/65; PULSE 67; RESP 15; TEMP 98.8; O2SAT 96
== END 2017-01-24 01:05 | disposition home or self-care (01) ==
DX: K29.70 Gastritis, unspecified, without bleeding (principal); E86.9 Volume depletion, unspecified
CPT/HCPCS: 96365

== ENCOUNTER 2017-01-29 12:39 | Day surgery (SDC) | payer SELFPAY ==
[2017-01-29] MEDS ORDERED: LR 1,000 ML IV ONE (12:54)
[2017-01-29] MEDS ORDERED: LIDOCAINE 1% 2 ML INJ ID PRN (12:54)
--- NOTE | 2017-01-29 13:10 | PDGENHP ---
History and Physical - Chief Complaint nausea, pain, vomiting - History of Present Illness pleasant 26yr old female with recent hx of nausea, vomiting, pain, and weight loss. History Information - Allergies/Home Medication List Allergies/Adverse Reactions: No Known Allergies Allergy (Verified 01/28/17 16:37) Home Medications: Prozac 10 MG (*) 10/08/16 [Last Taken Unknown] Nexium 01/23/17 [Last Taken Unknown] Pantoprazole Sodium [Protonix 40mg (*)] 01/28/17 [Last Taken Unknown] Sucralfate [Carafate 1gm/10ml Oral Liquid (*)] 01/28/17 [Last Taken Unknown] I have personally reviewed and updated: family history, medical history, social history, surgical history - Past Medical History GERD - Surgical History Reports: no pertinent surgical hx - Family History Positive for: renal disease, CAD - Social History Smoking Status: Never smoked Alcohol Use: None Drug Use: None Review of Systems Review of Systems: ROS: 10pt was reviewed & negative except for what was stated in HPI & below Physical Exam Physical Exam: Constitutional: no apparent distress Eyes: PERRL Ears, Nose, Mouth, Throat: moist mucous membranes Cardiovascular: regular rate and rhythym Respiratory: no respiratory distress Gastrointestinal: normoactive bowel sounds, soft, non-tender abdomen Skin: warm Neurologic: AAOx3 Psychiatric: interacting appropriately Assessment & Plan Assessment: abdominal symptoms Plan: egd
[2017-01-29] MEDS ORDERED: MIDAZOLAM 2 MG/2 ML VIAL IVP ONE (13:33)
--- NOTE | 2017-01-29 13:33 | PDANEPAE ---
ANE Past Medical History - Cardiovascular History Hx Hypertension: No Hx Arrhythmias: No Hx Chest Pain: No Hx Coronary Artery / Peripheral Vascular Disease: No Hx CHF / Valvular Disease: No Hx Palpitations: No Cardiovascular History Comment: pt BP runs low - Pulmonary History Hx COPD: No Hx Asthma/Reactive Airway Disease: No Hx Recent Upper Respiratory Infection: No Hx Oxygen in Use at Home: No Hx Sleep Apnea: No Sleep Apnea Screening Result - Last Documented: Negative - Neurologic History Hx Cerebrovascular Accident: No Hx Seizures: No Hx Dementia: No - Endocrine History Hx Diabetes: No - Renal History Hx Renal Disorders: No - Liver History Hx Hepatic Disorders: No - Neurological & Psychiatric Hx Hx Neurological and Psychiatric Disorders: Yes Neurological / Psychiatric History Comment: arms go numb - Cancer History Hx Cancer: No - Congenital Disorder History Hx Congenital Disorders: No - GI History Hx Gastrointestinal Disorders: Yes Gastrointestinal History Comment: gerd,nausea/voming burning. hx of torn esophagus - Other Health History Other Health History: bruises easily - Chronic Pain History Chronic Pain: Yes (stomach and throat) - Surgical History Prior Surgeries: none ANE Review of Systems Review of Systems: - Exercise capacity METS (RN): 4 METS ANE Patient History - Allergies Allergies/Adverse Reactions: No Known Allergies Allergy (Verified 01/28/17 16:37) - Home Medications Home Medications: Prozac 10 MG (*) 10/08/16 [Last Taken 01/28/17] Nexium 01/23/17 [Last Taken 01/28/17] Pantoprazole Sodium [Protonix 40mg (*)] 01/28/17 [Last Taken 01/27/17] Sucralfate [Carafate 1gm/10ml Oral Liquid (*)] 01/28/17 [Last Taken 01/28/17] Maalox Maximum Strength Suspension 01/29/17 [Last Taken 01/28/17] - Smoking Hx Smoking Status: Never smoked - Alcohol Use Alcohol Use: None - Family Anes Hx Family Hx Anesthesia Complications: none ANE Labs/Vital Signs - Vital Signs Height: 157.48 cm Weight: 74.843 kg ANE Physical Exam - Airway Mouth exam: normal dental/mouth exam - Pulmonary Pulmonary: no respiratory distress - Cardiovascular Cardiovascular: regular rate and rhythym
[2017-01-29] MEDS ORDERED: MIDAZOLAM 2 MG/2 ML VIAL ONE (13:45)
[2017-01-29] MEDS ORDERED: PROPOFOL/EMULSION 500 MG/50 ML BOTTLE IV ONE (13:46)
[2017-01-29] MEDS ORDERED: fentaNYL 100 MCG/2 ML INJ ONE (13:46)
--- NOTE | 2017-01-29 14:05 | GIREPORT ---
[facility] Surgical Services - Endoscopy Department Patient Name: Gricelda Null Procedure Date: 01/29/2017 1:40 PM Patient Type: Outpatient Attending MD/ ER Physician: Corwin Saeed MD Procedure: Upper GI endoscopy Indications: Epigastric abdominal pain, Heartburn, Hematemesis Providers: Corwin Saeed MD Medicines: Sedation Administered by an Anesthesia Professional Complications: No immediate complications. Description of Procedure: After obtaining informed consent, the endoscope was passed under direct vision. Throughout the procedure, the patient's blood pressure, pulse, and oxygen saturations were monitored continuously. The Endoscope was intro duced through the mouth, and advanced to the third part of duodenum. The uppe r GI endoscopy was accomplished without difficulty. The patient tolerated th e procedure well. Findings: The examined esophagus was normal. Diffuse mild inflammation characterized by congestion (edema) and eryth bridget was found in the entire examined stomach. Biopsies were taken with a co ld forceps for histology. The examined duodenum was normal. Biopsies were taken with a cold force ps for histology. Estimated Blood Loss: Estimated blood loss: none. Post Op Diagnosis: - Normal esophagus. - Gastritis. Biopsied. - Normal examined duodenum. Biopsied. Recommendation: - Written discharge instructions were provided to the patient. - The signs and symptoms of potential delayed complications were discus sed with the patient. - Patient has a contact number available for emergencies. - Return to normal activities tomorrow. - Resume previous diet. - Continue present medications. - Await pathology results. Attending Participation: I personally performed the entire procedure. Corwin Saeed MD Corwin Saeed MD 01/29/2017 2:05:19 PM This report has been signed electronicallyCorwin Saeed MD Number of Addenda: 0 Note Initiated On: 01/29/2017 1:40 PM Total Procedure Duration Time 0 hours 4 minutes 32 seconds [email or web address]
[2017-01-29] MEDS ORDERED: NALOXONE HCL 0.4 MG/ML INJ IVP PRN (14:17)
[2017-01-29] MEDS ORDERED: fentaNYL 100 MCG/2 ML INJ IVP PRN (14:17)
[2017-01-29] MEDS ORDERED: ONDANSETRON 4 MG/2 ML VIAL IVP PRN (14:17)
--- NOTE | 2017-01-29 14:19 | POSTANESTH ---
Post Anesthetic Evaluation Respiratory Status: Normal, Stable Level of Consciousness/Mental Status: Can Participate in Eval Pain Control: Adequate, Prn Tx Ordered Nausea/Vomiting Control: Adequate, Prn Tx Ordered Complications Possibly Related to Anesthesia: None Noted
[2017-01-29 14:40] VITALS: TEMP 98.1
[2017-01-29 14:57] VITALS: BP 97/59; PULSE 64; RESP 15; O2SAT 96
== END 2017-01-29 15:30 | disposition home or self-care (01) ==
LOC: FSGY 12:39
PROVIDERS: ATTEND Internal Medicine Gastroenterology
PROC: 0DB98ZX Excision of Duodenum, Via Natural or Artificial Opening Endoscopic, Diagnostic (ICD-10-PCS; principal; 2017-01-29 13:30)
PROC: 0DB68ZX Excision of Stomach, Via Natural or Artificial Opening Endoscopic, Diagnostic (ICD-10-PCS; principal; 2017-01-29 13:30)
DX: K29.70 Gastritis, unspecified, without bleeding (principal); R10.13 Epigastric pain; K21.9 Gastro-esophageal reflux disease without esophagitis
CPT/HCPCS: J2250; J2704; J3010